=== PATIENT | female | born 2000 | race Two or more races ===

== ENCOUNTER 2024-07-29 11:35 | Emergency (ER) | payer OTHER ==
[~2024-07-29] VITALS: Ht 160 cm; Wt 122.5 kg
[2024-07-29] MEDS ORDERED: LOSARTAN-HCTZ1 EAC2 PO (12:11)
[2024-07-29] MEDS ORDERED: AMLODIPINE (12:12)
[2024-07-29] MEDS ORDERED: 0.9 % SODIUM CHLORIDE 1,000 ML IV ONE (15:45)
[2024-07-29] MEDS ORDERED: ONDANSETRON HCL 2 MG/ML VIAL IV ONE (15:45)
[2024-07-29] MEDS ORDERED: FAMOtidine 10 MG/ML (4ML VIAL) IV ONE (15:45)
[2024-07-29 16:43] LABS: HEMATOCRIT 39.8 % (36.0-45.00); HEMOGLOBIN 13.9 g/dL (12.0-15.00); MEAN CELL VOLUME 91.6 fL (80.00-100.00); MEAN CORPUSCULAR HEMOGLOBIN 32.1 pg (27.00-32.0); PLATELET COUNT 381 K/uL (150-450); RED BLOOD COUNT 4.34 M/uL (4.00-6.00); RED CELL DISTRIBUTION WIDTH 13.3 % (11.5-14.5)
[2024-07-29 17:22] LABS: ALBUMIN 4.2 gm/dL (3.4-5.0); ALKALINE PHOSPHATASE 78 U/L (50-136); ALT/SGPT 22 U/L (12-78); ANION GAP 9 (10.0-20.0); AST/SGOT 13 U/L (15-37); BILIRUBIN TOTAL 0.58 mg/dL (0.3-1.2); BLOOD UREA NITROGEN 16 mg/dL (7-18); BUN CREA RATIO 25 (7.0-25.0); CARBON DIOXIDE 30 mEq/L (21-32); CHLORIDE 102 mmol/L (98-107); CREATININE SERUM 0.64 mg/dL (0.55-1.02); GFR 112.17; GLOBULINA 4.8 G/DL (2.4-3.5); GLUCOSE FASTING 86 mg/dL (65-100); OSMOLALITY SERUM 274 MOSM/KG (275-295); POTASSIUM 4.12 mEq/L (3.5-5.1); SODIUM 137 mmol/L (136-145)
[2024-07-29 17:35] LABS: HCG QUANTITATIVE < 1 mUI/mL (1-3)
[2024-07-29 18:12] LABS: PH,URINE 6.5 (5.0-8.0); URINE APPEARANCE Clear; URINE BILIRRUBIN Negative (NEGATIVE); URINE BLOOD Negative; URINE COLOR Dark Yellow; URINE GLUCOSE Negative (NEGATIVE); URINE LEUKOCYTE Negative; URINE NITRATE Negative
[2024-07-29 18:16] LABS: URINE BACTERIA 249.4 uL (0.0-1933); URINE EPITHELIAL CELLS 10.6 uL (0.0-38.8); URINE RBC 33.4 uL (0.0-20.8); URINE WBC 5.7 uL (0.0-23.2)
[2024-07-29 18:48] LABS: URINE CAST 0.15 uL (0.0-1.40); URINE KETONE 40 (NEGATIVE); URINE PROTEIN 300 (NEGATIVE)
[2024-07-29] MEDS ORDERED: MECLIZINE HCL 25 MG TABLET PO ONE (21:00)
== END 2024-07-29 22:07 | disposition home or self-care (01) ==
LOC: ER 11:37
PROVIDERS: General Practice
DX: R11.10 Vomiting, unspecified (principal); Z91.040 Latex allergy status; I10 Essential (primary) hypertension; H66.90 Otitis media, unspecified, unspecified ear; Z20.822 Contact with and (suspected) exposure to COVID-19

== ENCOUNTER 2025-09-06 08:00 | Day surgery (SDC) | payer OTHER ==
[2025-08-22 08:35] LABS: BASO % 0.5 % (0.1-1.2); EOS # 0.11 (0.04-0.54); EOS % 0.8 % (0.7-7.0); LYMPH # 2.03 (1.18-3.74); LYMPH % 15.1 % (19.3-53.1); MEAN PLATELET VOLUME 9.80 fl (9.4-12.4); MONO # 0.91 (0.24-0.82); MONO % 6.8 % (4.7-12.5); NEUT # 10.24 (1.56-6.13); NEUT % 76.4 % (34.0-71.1); RED CELL DISTRIBUTION WIDTH 12.2 % (11.6-14.4)
[2025-08-22 08:57] LABS: INR < 0.93
[2025-08-22 09:00] VITALS: BP 140/92
[2025-08-22 09:17] LABS: BUN CREA RATIO 31.0 (7.0-25.0); CREATININE SERUM 0.52 mg/dL (0.55-1.02); GFR 141.45; GLUCOSE FASTING 96.0 mg/dL (65-100); OSMOLALITY SERUM 279.0 MOSM/KG (275-295)
[2025-08-22 09:39] LABS: URINE APPEARANCE Cloudy; URINE BILIRRUBIN Negative (NEGATIVE); URINE BLOOD Moderate; URINE COLOR Yellow; URINE GLUCOSE Negative (NEGATIVE); URINE KETONE Trace (NEGATIVE); URINE LEUKOCYTE Moderate; URINE NITRATE Negative; URINE PROTEIN 30 (NEGATIVE); URINE UROBILINOGEN 0.2 E.U./dl
[2025-08-22 09:43] LABS: URINE EPITHELIAL CELLS 23.0 uL (0.0-38.8); URINE RBC 69.5 uL (0.0-20.8); URINE WBC 1742.9 uL (0.0-23.2)
[2025-08-22 09:49] LABS: URINE BACTERIA > 9821.5 uL (0.0-1933); URINE CAST 0.14 uL (0.0-1.40)
[~2025-09-06] VITALS: Ht 160 cm; Wt 117.5 kg
[~2025-09-06 08:00] MED LIST: AMLODIPINE; LOSARTAN-HCTZ1 EAC2 PO; NORVASC2.5 M1 PO
[2025-09-06] MEDS ORDERED: DEXAMETHASONE SODIUM PHOSPHATE 4 MG/ML VIAL ONE (08:30)
[2025-09-06] MEDS ORDERED: BUPIVACAINE HCL/Mpf 0.5% 10ML VIAL ONE (08:30)
[2025-09-06] MEDS ORDERED: BUPIVACAINE HCL/MPF 0.5% 30ML VIAL ONE (08:30)
[2025-09-06] MEDS ORDERED: CEFAZOLIN SODIUM 1,000 MG VIAL IV ONE (09:45)
[2025-09-06] MEDS ORDERED: KETOROLAC TROMETHAMINE 30 MG VIAL ONE (10:00)
[2025-09-06] MEDS ORDERED: SUGAMMADEX SODIUM 200 MG/2 ML VIAL IV ONE (10:02)
[2025-09-06] MEDS ORDERED: KETO10TA2 PO (10:22)
[2025-09-06] MEDS ORDERED: TRAMADOL HCL50 MG PO (10:22)
[2025-09-06] MEDS ORDERED: TYLENOL ARTHRI650 MG PO (10:22)
[2025-09-06] MEDS ORDERED: MIRALAX17 GM PO (10:22)
== END 2025-09-06 13:15 | disposition home or self-care (01) ==
LOC: CIR.AMB 08:00
PROVIDERS: ATTEND Surgery
DX: K42.0 Umbilical hernia with obstruction, without gangrene (principal)